=== PATIENT | male | born 1955 | race Caucasian/White ===

== ENCOUNTER 2022-09-30 11:03 | Emergency (ER) | payer OTHER | END 2022-09-30 12:54 | disposition home or self-care (01) | LOC: ERS 11:03 | DX: R09.81 Nasal congestion (principal); R06.2 Wheezing; R05.9 Cough, unspecified; I10 Essential (primary) hypertension; E11.9 Type 2 diabetes mellitus without complications; E78.00 Pure hypercholesterolemia, unspecified; Z20.822 Contact with and (suspected) exposure to COVID-19; Z79.82 Long term (current) use of aspirin; Z79.899 Other long term (current) drug therapy | CPT/HCPCS: U0003; U0005; 99283 ==

== ENCOUNTER 2023-05-30 05:54 | Day surgery (SDC) | payer OTHER ==
[2023-05-28 16:55] VITALS: BMI 28.0
[2023-05-30] MEDS ORDERED: Lidocaine 1% PF 5 ML VIAL ONE (07:34)
[2023-05-30] MEDS ORDERED: PROPOFOL 200 MG/20 ML VIAL ONE (07:34)
[2023-05-30] MEDS ORDERED: fentaNYL 50 mcg/mL 1 mL Vial ONE (07:46)
== END 2023-05-30 08:50 | disposition home or self-care (01) ==
LOC: SDC 05:54
PROVIDERS: ATTEND Internal Medicine Gastroenterology
PROC: 0DJD8ZZ Inspection of Lower Intestinal Tract, Via Natural or Artificial Opening Endoscopic (ICD-10-PCS; principal; 2023-05-30)
DX: Z12.11 Encounter for screening for malignant neoplasm of colon (principal); K57.30 Diverticulosis of large intestine without perforation or abscess without bleeding; I10 Essential (primary) hypertension; E78.5 Hyperlipidemia, unspecified; E11.40 Type 2 diabetes mellitus with diabetic neuropathy, unspecified; E55.9 Vitamin D deficiency, unspecified
CPT/HCPCS: 45378; J3010; J2704